=== PATIENT | male | born 1995 | race Caucasian/White ===

== ENCOUNTER 2020-04-06 13:31 | Inpatient (IN) | payer OTHER, MEDICAID, SELFPAY ==
[2020-04-06 13:33] VITALS: BP 134/90; PULSE 114; RESP 16; TEMP 36.7; O2SAT 95; BMI 21.1
--- NOTE | 2020-04-06 13:48 | ED.VIS.GEN ---
History of Present Illness Chief Complaint: Substance Abuse Narrative: Patient presenting for evaluation for detox from opiates. Patient reports that he has been on Suboxone treatment by a physician for around 2 years, but has had some issues with intermittent relapses with heroin. He was in a detox program around a year ago, and then states that he had a relapse last weekend of injection heroin and methamphetamine. Patient states that he has not used illicit drugs since the weekend, his last dose of Suboxone was this morning. He is presenting requesting detox from Suboxone and all opiates. Patient denies any other coingestants today. He denies any other somatic symptoms. Review of systems otherwise negative. Past Medical History - Allergies and Home Meds Allergies/Adverse Reactions: Allergies No Known Allergies Allergy (Verified 04/06/20 13:35) Prior records reviewed: Yes Past Medical History: - - Substance abuse history Surgical History: noncontributory Drugs: Heroin Review of Systems All systems negative except as indicated General: Denies: Chills, Fever, Sweats Eyes: Denies: Visual changes - bilaterally, Diplopia ENT: Denies: Rhinorrhea, Sore throat Cardiovascular: Denies: Chest pain, Palpitations Respiratory: Denies: Dyspnea, Cough, Dyspnea on exertion Gastrointestinal: Denies: Abdominal pain, Nausea, Vomiting, Diarrhea, Melena, Hematochezia Genitourinary: Denies: Dysuria, Hematuria, Frequency Musculoskeletal: Denies: Back pain, Extremity Pain Skin: Denies: Rash, Wounds Neurological: Denies: Headache, Weakness, Numbness Physical Exam Vital Signs/Narrative: Vital Signs Temp Pulse Resp BP Pulse Ox 04/06/20 13:33 98.1 F 114 H 16 134/90 H 95 Inital Vital Signs reviewed: Yes General: Well nourished, Well developed, No Acute Distress Head: Normocephalic, Atraumatic Eyes: Perrl, EOMI ENT: Moist mucous membranes, No rhinorrhea Neck: Supple, Nontender Cardiovascular: Regular rate, Regular rhythm, No murmurs Respiratory: No distress, CTA bilaterally, Chest nontender Abdomen: Soft, Nontender, Nondistended, Normal bowel sounds Back: Nontender, Normal Inspection Extremities: Nontender, No edema Skin: Normal color, No rash Neurological: Alert, Oriented x3, Cranial nerves II-XII grossly intact, Normal Strength, Normal Sensation Psychological: Normal affect, Normal Mood Diagnostic/Tx/Re-eval - Medical Decision Making Patient presented for detox from opiates. Patient seems to have good insight and judgment and is forward thinking and has not been through the detox program for. He has no outward signs of infection no or any underlying medical issues that would disqualify him from the program. Screening labs were obtained. Patient will be admitted to the hospitalist for treatment of his opiate dependence. ED Disposition - Plan for ED Patient: Disposition: [facility] Diagnosis: Opiate dependence
[2020-04-06 14:47] VITALS: BP 125/71; PULSE 57; RESP 16; TEMP 36.6; O2SAT 96
[2020-04-06 15:00] VITALS: BP 125/71; PULSE 57; RESP 14; RESP 16; TEMP 36.6; O2SAT 97
[2020-04-06 15:02] LABS: Absolute Neutrophil Count 3.7 X10^3/uL (2.0-7.7); Basophil# 0.02 X10^3/uL; Basophil% 0.3 % (0-1); Eosinophil# 0.01 X10^3/uL; Eosinophils% 0.2 % (0-5); Hematocrit 41.9 % (40-54); Hemoglobin 14.3 g/dL (13.0-16.5); Lymphocyte % 27.1 % (19-41); Mean Corp Hgb Conc 34.1 g/dL (32-36); Mean Corpuscular Hgb 29.4 pg (27.0-32.0); Mean Corpuscular Volume 86.2 fL (80-94); Mean Platelet Vol. 11.9 fl (6.2-12.0); Monocyte# 0.52 X10^3/uL; Monocyte% 8.8 % (0-10); NRBC Flagged by Analyzer 0 % (0-5); Neutrophil # 3.74 X10^3/uL (2.7-7.7); Neutrophil % 63.4 % (47-70); Platelet Count 265 K/mm3 (150-450); RBC Distribution Width CV 12.4 % (11.6-14.6); RBC Distribution Width SD 38.8 fl (35.1-43.9); Red Blood Count 4.86 M/mm3 (4.6-6.2); White Blood Count 5.9 K/mm3 (4.4-11.0)
[2020-04-06 15:08] LABS: Amphetamine Urine VISTA NEGATIVE (<1000 ng/mL); Barbiturate Urine VISTA NEGATIVE (< 200 ng/mL); Benzodiazepine Urine VISTA NEGATIVE (< 200 ng/mL); Cocaine Urine VISTA NEGATIVE (< 300 ng/mL); Ecstacy Urine VISTA NEGATIVE (< 500 ng/mL); Methadone Urine VISTA NEGATIVE (< 300 ng/mL); PCP Urine VISTA NEGATIVE (< 25 ng/mL); THC Urine VISTA POSITIVE (< 50 ng/mL); Vista UDS pH Range 5
[2020-04-06 15:19] LABS: ALB/GLOB Ratio 1.5 RATIO (0.9-2.4); AST(SGOT) 12 U/L (15-37); Alanine Aminotransfer ALT/SGPT 22 U/L (16-61); Albumin, Serum 4.4 g/dL (3.2-5.0); Alkaline Phosphatase 76 U/L (45-117); Anion Gap 3 (5-15); BUN 17 mg/dL (7-18); BUN/Creat Ratio 18.6 RATIO (10-20); Calcium,Total 9.3 mg/dL (8.5-10.1); Chloride 105 mmol/L (98-107); Creatinine, Serum 0.92 mg/dL (0.70-1.30); EST Glomerular Filtration Rate 107 mL/min (>60); Est Glom Filt Rate - Afr Amer 130 mL/min (>60); Estimated Creatinine Clearance 113.83 ml/min; Globulin 2.9 g/dL (2.2-4.2); Glucose 89 mg/dL (74-106); Potassium 4.3 mmol/L (3.5-5.1); Protein, Total 7.3 g/dL (6.4-8.2); Sodium Level 141 mmol/L (136-145)
[2020-04-06 15:22] LABS: Alcohol, Blood (Medical)-Serum < 3.0 mg/dL
--- NOTE | 2020-04-06 15:27 | CM.ED ---
Social Work Consult: Substance Abuse Informant: Dr. Fernández Met with patient in room. Introduced self and social media intern role. Patient agreeable to speak with this social media intern. Patient is seeking medical management of withdrawal symptoms, [facility] program. Patient states substance of choice is Heroine/Meth and last use was this past weekend. Patient states to have active substance abuse services through [facility]. Patient states to have support from patient mother and to currently live with mother. Patient states history of Depression, Anxiety and PTSD. When this social media intern inquired about possible triggers for patient in regards to trauma informed care patient states I am not sure why I am diagnosed with PTSD. Patient reports history of suicidal thoughts 5 years ago with no suicidal attempt history. Patient denies self-harm behavior. Patient aware of RAMP guidelines and contract. Patient voicing no questions. Support provided. Telephone call to [facility] treatment navigatorRoderick. This social media intern updated Roderick on admission status for patient. Mark So MSW, [place]
[2020-04-06 15:45] VITALS: BMI 20.3; BMI 20.4
--- NOTE | 2020-04-06 16:27 | PCM.HP.STD ---
Problem List (1) Acute opioid withdrawal Status: Acute (2) Opiate dependence Status: Acute Qualifiers: Substance use status: with unspecified opioid-induced disorder Qualified Code(s): F11.29 - Opioid dependence with unspecified opioid-induced disorder History of Present Illness Date of Admission: 04/06/20 Chief Complaint: Acute opioid withdrawal- 1 day The patient is a 24 year old M with PMHx of opioid withdrawal and nicotine dependence who comes in requesting for medical stabilization for opioid use. Patient is in a chronic Suboxone program but relapsed and started using heroin and amphetamine last week. He last took Suboxone this morning prior to coming to the ED. He has very mild symptoms of feeling hot and cold and feeling achy. He denied any diarrhea or abdominal pain. Denied any nausea or vomiting. Vitals in the ED showed temp of 98.1F, heart rate 114, blood pressure 134/90, respiratory 16, SPO2 is 95% on room air. BBC count is 5.9, hemoglobin is 14.3, platelet count 265, sodium 141, potassium 4.2, chloride 105, bicarbonate 33, BUN 17, creatinine 0.92, unremarkable. Urine tox positive for opiates and cannabinoids. Past Medical History Allergies No Known Allergies Allergy (Verified 04/06/20 13:35) Home Medications: Ambulatory Orders Medication Instructions Recorded Buprenorphine HCl/Naloxone HCl 8 ea SL BID 04/06/20 [Suboxone 8 mg-2 mg Sl Film] Surgical History: noncontributory Psychiatric History: No pertinent psych hx Lives: With Family Smoking Status: Current every day smoker Tobacco Use: Cigarettes Alcohol: None Drugs: Heroin, Marijuana - *Family History Maternal History Items: No pertinent history Paternal History Items: No pertinent history Review of Systems Constitutional: Reports: Chills, Malaise, Weakness. Denies: Anorexia, Fever, Weight Change, Fatigue Eyes: Denies: Blurred vision, Cataracts, Conjunctivae Inflammation, Pain, Redness, Vision Change HEENT: Denies: Difficulty Hearing, Difficulty Swallowing, Head Aches, Hearing Changes, Sinus Congestion, Sinus Drainage Cardiovascular: Denies: Chest Pain, Claudication, Orthopnea, Palpitations Respiratory: Denies: Cough, Hemoptysis, Shortness of breath at rest, Shortness of breath upon exertion, Sputum production Gastrointestinal: Denies: Abdominal Pain, Hematemesis, Hematochezia, Nausea, Vomiting Genitourinary: Denies: Dysuria, Frequency, Incontinence Musculoskeletal: Denies: Joint Pain, Joint Tenderness Skin: Denies: Rash, Wounds Neurological: Denies: Numbness, Tingling, Focal weakness Psychiatric: Denies: Anxiety, Depression, Homicidal Ideations, Suicidal Ideations Hematologic/ Lymphatic: Denies: Easy Bruising, Easy Bleeding VTE Information - Inpt Only VTE Present on Admission: No VTE Pharm Prophylaxis ordered?: Yes Patient Problems: Active and Suspected Problems Opiate dependence (Acute) Acute opioid withdrawal (Acute) - Physical Exam Vitals/I&O's: Vital Signs Temp Pulse Resp BP Pulse Ox 97.8 F 57 L 14 125/71 H 96 04/06/20 14:47 04/06/20 14:47 04/06/20 15:00 04/06/20 14:47 04/06/20 14:47 Oxygen Delivery Method Room Air Weight: 62.6 kg Body Mass Index (BMI) 20.3 General: Alert, Oriented x3, Cooperative, No apparent distress HEENT: Atraumatic, PERRLA, EOMI, Normocephalic Oral: Moist Mucosa Neck: Supple Lungs: Clear to auscultation, Normal air movement Cardiovascular: Regular rate, Regular Rhythm, Normal S1, Normal S2, No murmurs Abdomen: Bowel Sounds Present, Soft, Non Tender, Non-Distended, No Hepato-splenomegaly Extremities: No edema Skin: No rashes Musculoskeletal: No Tenderness to Palpation of Joints or Extremities Lymphatic: No Cervical, Supraclavicular, or Inguinal Adenopathy Neurological: Cranial nerves II-XII grossly intact, Neuro grossly intact Psych/Mental Status: Normal Affect, Appropriate Laboratory Results 04/06/20 14:41: Urine Opiates Screen POSITIVE H, Urine Methadone Screen NEGATIVE, Ur Barbiturates Screen NEGATIVE, Ur Phencyclidine Scrn NEGATIVE, Ur Amphetamines Screen NEGATIVE, U Methamphetamin-MDMA NEGATIVE, U Benzodiazepines Scrn NEGATIVE, Urine Cocaine Screen NEGATIVE, U Cannabinoids Screen POSITIVE H, Ur Drug Screen Comment 04/06/20 14:55: WBC 5.9, RBC 4.86, Hgb 14.3, Hct 41.9, MCV 86.2, MCH 29.4, MCHC 34.1, RDW Std Deviation 38.8, RDW Coeff of Andres 12.4, Plt Count 265, MPV 11.9, Immature Gran % (Auto) 0.200, Neut % (Auto) 63.4, Lymph % (Auto) 27.1, Plumas % (Auto) 8.8, Eos % (Auto) 0.2, Baso % (Auto) 0.3, Absolute Neuts (auto) 3.7, Absolute Lymphs (auto) 1.60, Nucleated RBC % 0 04/06/20 14:55: Sodium 141, Potassium 4.3, Chloride 105, Carbon Dioxide 33.0 H, Anion Gap 3 L, BUN 17, Creatinine 0.92, Estim Creat Clear Calc 113.83, Est GFR (MDRD) Af Amer 130, Est GFR (MDRD) Non-Af 107, BUN/Creatinine Ratio 18.6, Glucose 89, Calcium 9.3, Total Bilirubin 0.50, AST 12 L, ALT 22, Alkaline Phosphatase 76, Total Protein 7.3, Albumin 4.4, Globulin 2.9, Albumin/Globulin Ratio 1.5 04/06/20 14:55: Ethyl Alcohol < 3.0 Assessment/Plan All Active Problems Opiate dependence (Acute) Acute opioid withdrawal (Acute) 1. Acute opioid withdrawal, mild, patient with chronic opioid use Patient currently on chronic Suboxone; last use was this morning Request for medical stabilization Will continue to monitor on the withdrawal protocol Social work consult for discharge planning 2. Nicotine dependence, on replacement 3. DVT PPx-low risk, early ambulation recommended Inpatient E&M: 30722 Init Hosp L2
[2020-04-06 20:23] VITALS: BP 112/65; PULSE 54; RESP 16; TEMP 36.9; O2SAT 98
[2020-04-06] MEDS: 0.9% Saline Lock 10 ML Syringe IV (20:26)
[2020-04-07] MEDS: hydrOXYzine PAM 25 MG Capsule 50 MG PO ×3 (01:02→21:37)
[2020-04-07] MEDS: Buprenorphine HCl 2 MG TAB.SUBL SL ×3 (01:02→16:46)
[2020-04-07 02:36] VITALS: BP 114/65; PULSE 69; RESP 16; TEMP 36.7; O2SAT 100
[2020-04-07 08:27] VITALS: BP 121/66; PULSE 60; RESP 18; TEMP 36.8; O2SAT 100
--- NOTE | 2020-04-07 09:34 | CASEMGMT ---
Social Work Note Pt is RAMP pt. SW placed a call to Carli at [facility] and left message that pt will need to be seen. Yelena Blum KENO WRITER/RUNNER, MACHINE MOLDER SQUEEZE
--- NOTE | 2020-04-07 11:35 | PN_ITS ---
<Giovanni Hall - Last Filed: 04/07/20 11:35> Patient Problems: Active and Suspected Problems Opiate dependence (Acute) Acute opioid withdrawal (Acute) Reason for Visit: opiate withdrawal Subjective: Pt c/o sweats, nausea, shakes, restlessness this AM now improved since receiving subutex. Vitals/I&O's: Vital Signs Temp Pulse Resp BP Pulse Ox 98.2 F 60 18 121/66 H 100 04/07/20 08:27 04/07/20 08:27 04/07/20 08:27 04/07/20 08:27 04/07/20 08:27 Oxygen Delivery Method Room Air Weight: 138 lb 0.15 oz Body Mass Index (BMI) 20.3 Intake and Output for Last 24 Hours 04/05/20 04/06/20 04/07/20 23:59 23:59 23:59 Intake Total 500 / 700 440 / 440 Output Total 500 / 500 Balance 0 / 200 440 / 440 General: Alert, Oriented x3, Cooperative HEENT: Atraumatic, PERRLA, EOMI, Normocephalic Neck: Supple, No JVD, Negative Carotid Bruits Lungs: Clear to auscultation, Normal air movement Cardiovascular: Regular rate, No murmurs Abdomen: Bowel Sounds Present, Soft, Non Tender Extremities: No edema, Capillary Refill Less than 3 Seconds Skin: No rashes, No breakdown Musculoskeletal: No Tenderness to Palpation of Joints or Extremities Neurological: Cranial nerves II-XII grossly intact Psych/Mental Status: Normal Affect, Appropriate, Alert and oriented to time, place, person, mood and affect Laboratory Results 04/06/20 14:41: Urine Opiates Screen POSITIVE H, Urine Methadone Screen NEGATIVE, Ur Barbiturates Screen NEGATIVE, Ur Phencyclidine Scrn NEGATIVE, Ur Amphetamines Screen NEGATIVE, U Methamphetamin-MDMA NEGATIVE, U Benzodiazepines Scrn NEGATIVE, Urine Cocaine Screen NEGATIVE, U Cannabinoids Screen POSITIVE H, Ur Drug Screen Comment 04/06/20 14:55: WBC 5.9, RBC 4.86, Hgb 14.3, Hct 41.9, MCV 86.2, MCH 29.4, MCHC 34.1, RDW Std Deviation 38.8, RDW Coeff of Andres 12.4, Plt Count 265, MPV 11.9, Immature Gran % (Auto) 0.200, Neut % (Auto) 63.4, Lymph % (Auto) 27.1, Parker % (Auto) 8.8, Eos % (Auto) 0.2, Baso % (Auto) 0.3, Absolute Neuts (auto) 3.7, Absolute Lymphs (auto) 1.60, Nucleated RBC % 0 04/06/20 14:55: Sodium 141, Potassium 4.3, Chloride 105, Carbon Dioxide 33.0 H, Anion Gap 3 L, BUN 17, Creatinine 0.92, Estim Creat Clear Calc 113.83, Est GFR (MDRD) Af Amer 130, Est GFR (MDRD) Non-Af 107, BUN/Creatinine Ratio 18.6, Glucose 89, Calcium 9.3, Total Bilirubin 0.50, AST 12 L, ALT 22, Alkaline Phosphatase 76, Total Protein 7.3, Albumin 4.4, Globulin 2.9, Albumin/Globulin Ratio 1.5 04/06/20 14:55: Ethyl Alcohol < 3.0 Current Medications Acetaminophen (Tylenol) 500 mg PO Q4H PRN PRN PRN Reason: Temp > 100.4 F Bisacodyl (Dulcolax) 10 mg RECTAL DAILY PRN PRN Reason: Constipation Buprenorphine HCl (Buprenorphine Hcl) 4 mg SL Q8H SAIGE; Taper Stop: 04/10/20 00:59 Last Admin: 04/07/20 08:25 Dose: 4 mg Documented by: Clonidine (Catapres) 0.1 mg PO Q8H PRN PRN PRN Reason: RESTLESSNESS Dicyclomine HCl (Bentyl) 20 mg PO Q6H PRN PRN PRN Reason: Abdominal Discomfort Gabapentin (Neurontin) 300 mg PO Q8H PRN PRN PRN Reason: moderate to severe anxiety Hydroxyzine Pamoate (Vistaril Pamoate Capsule) 50 mg PO Q6H PRN PRN PRN Reason: mild anxiety Last Admin: 04/07/20 01:02 Dose: 50 mg Documented by: Ibuprofen (Motrin) 600 mg PO Q8H PRN PRN PRN Reason: Pain Score 1-10/10 Loperamide HCl (Imodium) 2 mg PO Q4H PRN PRN PRN Reason: LOOSE STOOLS Methocarbamol (Methocarbamol) 1,500 mg PO Q6H PRN PRN PRN Reason: MUSCLE SPASM Nicotine (Nicoderm Cq (Pbkc)) 21 mg TRANSDERM. DAILY SAIGE Last Admin: 04/07/20 08:25 Dose: 21 mg Documented by: Nicotine Polacrilex (Rugby Nicotine (Bkc)) 2 mg PO Q2H PRN PRN PRN Reason: Nicotine Craving Ondansetron HCl (Zofran) 8 mg PO Q8H PRN PRN PRN Reason: NAUSEA Senna (Senokot) 2 tablet PO QHS PRN PRN Reason: Constipation Sodium Chloride () 10 - 40 ml IV UD PRN PRN Reason: SALINE FLUSH Last Admin: 04/06/20 20:26 Dose: 10 ml Documented by: Trazodone HCl (Desyrel) 100 mg PO QHS PRN PRN PRN Reason: INSOMNIA STROKE Vital Signs/Narrative: Vital Signs Temp Pulse Resp BP Pulse Ox 04/07/20 08:27 98.2 F 60 18 121/66 H 100 Medical Necessity - Tobacco Use Smoking Status: Current every day smoker Tobacco Use: Cigarettes Assessment/Plan All Active Problems Opiate dependence (Acute) Acute opioid withdrawal (Acute) 1. Opiate abuse with withdrawal - increased sx this AM however improved after latest subetex dose. Continue taper. Injections sites at [facility] AC's appear uninfec lina. 2. Nicotine abuse - patch DVT ppx: early ambulation [facility] plannin program This patient was seen by Giovanni Hall PA-C under the supervision of Doctor Lolita. <Eulogio Mchugh F - Last Filed: 04/07/20 15:45> Vitals/I&O's: Vital Signs Temp Pulse Resp BP Pulse Ox 98.2 F 66 16 116/74 100 04/07/20 14:54 04/07/20 14:54 04/07/20 14:54 04/07/20 14:54 04/07/20 14:54 Oxygen Delivery Method Room Air Weight: 138 lb 0.15 oz Body Mass Index (BMI) 20.3 Intake and Output for Last 24 Hours 04/05/20 04/06/20 04/07/20 23:59 23:59 23:59 Intake Total 500 / 700 940 / 940 Output Total 500 / 500 Balance 0 / 200 940 / 940 Current Medications Acetaminophen (Tylenol) 500 mg PO Q4H PRN PRN PRN Reason: Temp > 100.4 F Bisacodyl (Dulcolax) 10 mg RECTAL DAILY PRN PRN Reason: Constipation Buprenorphine HCl (Buprenorphine Hcl) 4 mg SL Q8H SAIGE; Taper Stop: 04/10/20 00:59 Last Admin: 04/07/20 08:25 Dose: 4 mg Documented by: Clonidine (Catapres) 0.1 mg PO Q8H PRN PRN PRN Reason: RESTLESSNESS Last Admin: 04/07/20 15:11 Dose: 0.1 mg Documented by: Dicyclomine HCl (Bentyl) 20 mg PO Q6H PRN PRN PRN Reason: Abdominal Discomfort Last Admin: 04/07/20 15:12 Dose: 20 mg Documented by: Gabapentin (Neurontin) 300 mg PO Q8H PRN PRN PRN Reason: moderate to severe anxiety Hydroxyzine Pamoate (Vistaril Pamoate Capsule) 50 mg PO Q6H PRN PRN PRN Reason: mild anxiety Last Admin: 04/07/20 15:11 Dose: 50 mg Documented by: Ibuprofen (Motrin) 600 mg PO Q8H PRN PRN PRN Reason: Pain Score 1-10/10 Loperamide HCl (Imodium) 2 mg PO Q4H PRN PRN PRN Reason: LOOSE STOOLS Methocarbamol (Methocarbamol) 1,500 mg PO Q6H PRN PRN PRN Reason: MUSCLE SPASM Last Admin: 04/07/20 15:11 Dose: 1,500 mg Documented by: Nicotine (Nicoderm Cq (Pbkc)) 21 mg TRANSDERM. DAILY SAIGE Last Admin: 04/07/20 08:25 Dose: 21 mg Documented by: Nicotine Polacrilex (Rugby Nicotine (Bkc)) 2 mg PO Q2H PRN PRN PRN Reason: Nicotine Craving Ondansetron HCl (Zofran) 8 mg PO Q8H PRN PRN PRN Reason: NAUSEA Senna (Senokot) 2 tablet PO QHS PRN PRN Reason: Constipation Sodium Chloride () 10 - 40 ml IV UD PRN PRN Reason: SALINE FLUSH Last Admin: 04/06/20 20:26 Dose: 10 ml Documented by: Trazodone HCl (Desyrel) 100 mg PO QHS PRN PRN PRN Reason: INSOMNIA STROKE Vital Signs/Narrative: Vital Signs Temp Pulse Resp BP Pulse Ox 04/07/20 14:54 98.2 F 66 16 116/74 100 Addendum: Dr. Mchugh I personally examined the patient and reviewed the chart. I agree with the above. 4-year-old male here for acute opiate withdrawal. We will continue with opiate withdrawal port protocol and plan for transfer to outpatient rehab with [facility]. His Suboxone taper is likely going to be finished on Friday therefore if he does get an appointment by Friday we will plan to keep him here through the weekend she can be discharged straight to [facility] helpfully prevent any relapse. Inpatient E&M: 54622 Subs Hosp L2
--- NOTE | 2020-04-07 12:02 | ADDICTION ---
This repairer typewriter met with patient, in his room, to conduct ASAM and MSE assessments and discharge planning. Patient was alert and oriented x4 and presented with euthymic mood/affect. He verbalized a desire to engage in treatment upon discharge from [facility]. This repairer typewriter scheduled patient for assessment and residential referral on 04/11/2020. He reports that he is amiable to this. He appears appropriate for the [facility] at this time.
[2020-04-07 14:54] VITALS: BP 116/74; PULSE 66; RESP 16; TEMP 36.8; O2SAT 100
[2020-04-07] MEDS: cloNIDine HCl 0.1 MG Tablet PO (15:11)
[2020-04-07] MEDS: Methocarbamol 750 MG Tablet 1500 MG PO ×2 (15:11→21:37)
[2020-04-07] MEDS: Dicyclomine 10 MG Capsule 20 MG PO ×2 (15:12→21:37)
--- NOTE | 2020-04-07 16:10 | CASEMGMT ---
Social Work Note SW received message from Carli at [facility] stating pt needs RASHAWN signed so a referral for residential can be made. SW in to speak with pt. SW introduced self and role at [facility]. SW explained that [facility] needs a RASHAWN signed, pt signed RASHAWN. SW faxed RASHAWN to Carli at [facility] and placed original on pt's chart. Yelena Blum TRAVEL REGISTERED NURSE ONCOLOGY, MOVING CONSULTANT
[2020-04-07 20:05] VITALS: BP 111/58; PULSE 60; RESP 16; TEMP 36.8; O2SAT 100
[2020-04-07] MEDS: Gabapentin 300 MG Capsule PO (20:16)
[2020-04-08] MEDS: Buprenorphine HCl 2 MG TAB.SUBL SL ×3 (01:53→16:57)
[2020-04-08 01:54] VITALS: BP 117/65; PULSE 50; RESP 16; TEMP 36.3; O2SAT 98
[2020-04-08] MEDS: Dicyclomine 10 MG Capsule 20 MG PO ×2 (09:07→19:53)
[2020-04-08] MEDS: Gabapentin 300 MG Capsule PO (09:07)
[2020-04-08] MEDS: Methocarbamol 750 MG Tablet 1500 MG PO ×2 (09:07→19:53)
[2020-04-08 10:00] VITALS: BP 111/69; PULSE 68; RESP 16; TEMP 36.8; O2SAT 98
--- NOTE | 2020-04-08 12:41 | PN_ITS ---
<Giovanni Hall - Last Filed: 04/08/20 12:41> Patient Problems: Active and Suspected Problems Opiate dependence (Acute) Acute opioid withdrawal (Acute) Reason for Visit: opiate withdrawal Subjective: Pt c/o all over body aches. otherwise doing well. Vitals/I&O's: Vital Signs Temp Pulse Resp BP Pulse Ox 97.4 F L 50 L 16 117/65 98 04/08/20 01:54 04/08/20 01:54 04/08/20 01:54 04/08/20 01:54 04/08/20 01:54 Oxygen Delivery Method Room Air Weight: 138 lb 0.15 oz Body Mass Index (BMI) 20.3 Intake and Output for Last 24 Hours 04/06/20 04/07/20 04/08/20 23:59 23:59 23:59 Intake Total 500 / 700 1390 / 1390 Output Total 500 / 500 Balance 0 / 200 1390 / 1390 General: Alert, Oriented x3, Cooperative HEENT: Atraumatic, PERRLA, EOMI, Normocephalic Neck: Supple, No JVD, Negative Carotid Bruits Lungs: Clear to auscultation, Normal air movement Cardiovascular: Regular rate, No murmurs Abdomen: Bowel Sounds Present, Soft, Non Tender Extremities: No edema, Capillary Refill Less than 3 Seconds Skin: No rashes, No breakdown Musculoskeletal: No Tenderness to Palpation of Joints or Extremities Neurological: Cranial nerves II-XII grossly intact Psych/Mental Status: Normal Affect, Appropriate, Alert and oriented to time, place, person, mood and affect Current Medications Acetaminophen (Tylenol) 500 mg PO Q4H PRN PRN PRN Reason: Temp > 100.4 F Bisacodyl (Dulcolax) 10 mg RECTAL DAILY PRN PRN Reason: Constipation Buprenorphine HCl (Buprenorphine Hcl) 2 mg SL Q8H SAIGE; Taper Stop: 04/10/20 00:59 Last Admin: 04/08/20 09:00 Dose: 2 mg Documented by: Clonidine (Catapres) 0.1 mg PO Q8H PRN PRN PRN Reason: RESTLESSNESS Last Admin: 04/07/20 15:11 Dose: 0.1 mg Documented by: Dicyclomine HCl (Bentyl) 20 mg PO Q6H PRN PRN PRN Reason: Abdominal Discomfort Last Admin: 04/08/20 09:07 Dose: 20 mg Documented by: Gabapentin (Neurontin) 300 mg PO Q8H PRN PRN PRN Reason: moderate to severe anxiety Last Admin: 04/08/20 09:07 Dose: 300 mg Documented by: Hydroxyzine Pamoate (Vistaril Pamoate Capsule) 50 mg PO Q6H PRN PRN PRN Reason: mild anxiety Last Admin: 04/07/20 21:37 Dose: 50 mg Documented by: Ibuprofen (Motrin) 600 mg PO Q8H PRN PRN PRN Reason: Pain Score 1-10/10 Loperamide HCl (Imodium) 2 mg PO Q4H PRN PRN PRN Reason: LOOSE STOOLS Methocarbamol (Methocarbamol) 1,500 mg PO Q6H PRN PRN PRN Reason: MUSCLE SPASM Last Admin: 04/08/20 09:07 Dose: 1,500 mg Documented by: Nicotine (Nicoderm Cq (Pbkc)) 21 mg TRANSDERM. DAILY SAIGE Last Admin: 04/08/20 09:01 Dose: 21 mg Documented by: Nicotine Polacrilex (Rugby Nicotine (Bkc)) 2 mg PO Q2H PRN PRN PRN Reason: Nicotine Craving Ondansetron HCl (Zofran) 8 mg PO Q8H PRN PRN PRN Reason: NAUSEA Senna (Senokot) 2 tablet PO QHS PRN PRN Reason: Constipation Sodium Chloride () 10 - 40 ml IV UD PRN PRN Reason: SALINE FLUSH Last Admin: 04/06/20 20:26 Dose: 10 ml Documented by: Trazodone HCl (Desyrel) 100 mg PO QHS PRN PRN PRN Reason: INSOMNIA Medical Necessity - Tobacco Use Smoking Status: Current every day smoker Tobacco Use: Cigarettes Assessment/Plan All Active Problems Opiate dependence (Acute) Acute opioid withdrawal (Acute) 1. Opiate abuse with withdrawal - doing well, continue subutex taper. 2. Nicotine abuse - patch DVT ppx: early ambulation DC plannin program. home tomorrow. This patient was seen by Giovanni Hall PA-C under the supervision of Doctor Lolita. <Eulogio Mchugh - Last Filed: 04/08/20 15:34> Vitals/I&O's: Vital Signs Temp Pulse Resp BP Pulse Ox 97.4 F L 50 L 16 117/65 98 04/08/20 01:54 04/08/20 01:54 04/08/20 01:54 04/08/20 01:54 04/08/20 01:54 Oxygen Delivery Method Room Air Weight: 138 lb 0.15 oz Body Mass Index (BMI) 20.3 Intake and Output for Last 24 Hours 04/06/20 04/07/20 04/08/20 23:59 23:59 23:59 Intake Total 500 / 700 1390 / 1390 850 / 850 Output Total 500 / 500 Balance 0 / 200 1390 / 1390 850 / 850 Current Medications Acetaminophen (Tylenol) 500 mg PO Q4H PRN PRN PRN Reason: Temp > 100.4 F Bisacodyl (Dulcolax) 10 mg RECTAL DAILY PRN PRN Reason: Constipation Buprenorphine HCl (Buprenorphine Hcl) 2 mg SL Q8H SAIGE; Taper Stop: 04/10/20 00:59 Last Admin: 04/08/20 09:00 Dose: 2 mg Documented by: Clonidine (Catapres) 0.1 mg PO Q8H PRN PRN PRN Reason: RESTLESSNESS Last Admin: 04/07/20 15:11 Dose: 0.1 mg Documented by: Dicyclomine HCl (Bentyl) 20 mg PO Q6H PRN PRN PRN Reason: Abdominal Discomfort Last Admin: 04/08/20 09:07 Dose: 20 mg Documented by: Gabapentin (Neurontin) 300 mg PO Q8H PRN PRN PRN Reason: moderate to severe anxiety Last Admin: 04/08/20 09:07 Dose: 300 mg Documented by: Hydroxyzine Pamoate (Vistaril Pamoate Capsule) 50 mg PO Q6H PRN PRN PRN Reason: mild anxiety Last Admin: 04/08/20 12:50 Dose: 50 mg Documented by: Ibuprofen (Motrin) 600 mg PO Q8H PRN PRN PRN Reason: Pain Score 1-10/10 Loperamide HCl (Imodium) 2 mg PO Q4H PRN PRN PRN Reason: LOOSE STOOLS Methocarbamol (Methocarbamol) 1,500 mg PO Q6H PRN PRN PRN Reason: MUSCLE SPASM Last Admin: 08/08/20 09:07 Dose: 1,500 mg Documented by: Nicotine (Nicoderm Cq (Pbkc)) 21 mg TRANSDERM. DAILY SAIGE Last Admin: 04/08/20 09:01 Dose: 21 mg Documented by: Nicotine Polacrilex (Rugby Nicotine (Bkc)) 2 mg PO Q2H PRN PRN PRN Reason: Nicotine Craving Ondansetron HCl (Zofran) 8 mg PO Q8H PRN PRN PRN Reason: NAUSEA Senna (Senokot) 2 tablet PO QHS PRN PRN Reason: Constipation Sodium Chloride () 10 - 40 ml IV UD PRN PRN Reason: SALINE FLUSH Last Admin: 04/06/20 20:26 Dose: 10 ml Documented by: Trazodone HCl (Desyrel) 100 mg PO QHS PRN PRN PRN Reason: INSOMNIA Addendum: Dr. Mchugh I personally examined the patient and reviewed the chart. I agree with the above. 24-year-old male here for acute opiate withdrawal. We will continue with opiate withdrawal port protocol and plan for transfer to outpatient rehab with [facility]. His Suboxone taper is likely going to be finished on Friday therefore if he does get an appointment by Friday we will plan to keep him here through the weekend she can be discharged straight to [facility] helpfully prevent any relapse. 04/08/2020: Doing well overnight, having total body aches. Continue with his opiate withdrawal protocol. Plan will be for outpatient rehab on Friday hopefully Inpatient E&M: [id number] [facility]
[2020-04-08] MEDS: hydrOXYzine PAM 25 MG Capsule 50 MG PO ×2 (12:50→21:53)
[2020-04-08 19:26] VITALS: BP 116/74; PULSE 60; RESP 16; TEMP 37.2; O2SAT 98
[2020-04-08 19:50] VITALS: BP 121/67; PULSE 63; RESP 16; TEMP 36.4; O2SAT 98
[2020-04-08] MEDS: Ibuprofen 600 MG Tablet PO (19:53)
[2020-04-08] MEDS: Ondansetron 8 MG Tablet PO (19:53)
[2020-04-08] MEDS: traZODone 100 MG Tablet PO (21:53)
[2020-04-09 01:48] VITALS: BP 103/56; PULSE 58; RESP 14; TEMP 36.5; O2SAT 99
[2020-04-09] MEDS: Buprenorphine HCl 2 MG TAB.SUBL SL ×2 (01:50→13:14)
[2020-04-09 09:00] VITALS: BP 128/72; PULSE 70; RESP 16; TEMP 37.2; O2SAT 98
--- NOTE | 2020-04-09 11:08 | DCINST_ITS ---
- Discharge Diagnoses Current Active Problems: Current Active and Chronic Problems Opiate dependence (Acute) Acute opioid withdrawal (Acute) You will use the following diet at home:: No restrictions Your food should be the consistency of: Regular Your liquids should be the consistency of: Regular/Thin Discharge Activity: Return to Normal Activity Allergies/Adverse Reactions: Allergies No Known Allergies Allergy (Verified 04/06/20 13:35) Medications to take at Discharge Buprenorphine HCl/Naloxone HCl [Suboxone 8 mg-2 mg Sl Film] 8 ea SL BID 04/06/20 Primary Care Physician: Care Physician,No Primary [Primary Care Provider] - Please follow up with your Primary Care Physician in: 1-2 weeks Test Results: Test results from this visit will be discussed in further detail at your follow- up appointment, if applicable. Please Follow Up With: [facility] program When: As soon as possible Proposed Discharge Date: 04/09/20
--- NOTE | 2020-04-09 11:08 | PCM.DC.SUM ---
<Giovanni Hall - Last Filed: 04/09/20 11:08> Discharge Date and Diagnosis - Problem List Patient Problems: Active and Suspected Problems Opiate dependence (Acute) Acute opioid withdrawal (Acute) Date of Admission: 04/06/20 Date of Discharge: 04/09/20 - Primary Discharge Diagnosis Acute Problems: Active Problems Opiate dependence (Acute) Acute opioid withdrawal (Acute) Nicotine abuse THC abuse Hospital Course and Treatment Operations: None Procedures: None Summary of Care Provided: Hospital Course: The patient is a 24 year old M with past medical history of IV opiate abuse who presented to the emergency room with request for assistance detoxing. He had been on a Suboxone program however he started using heroin and amphetamines a week prior to presentation. His withdrawal symptoms were mild including hot and cold flashes, achiness all over. He had been injecting into the bilateral ACs which appear noninfected at this time. He was admitted to the detox program and started on the Subutex taper. He underwent an unremarkable course and completed the taper. He was discharged home in stable condition and will follow up with the [facility] program as an outpatient. Follow up with PCP in 1-2 weeks as well. This patient was seen by Giovanni Hall PA-C under the supervision of Dr. Mchugh. [] Patient Problems: Active and Suspected Problems Opiate dependence (Acute) Acute opioid withdrawal (Acute) - Physical Exam Vitals/I&O's: Vital Signs Temp Pulse Resp BP Pulse Ox 97.7 F L 58 L 14 103/56 L 99 04/09/20 01:48 04/09/20 01:48 04/09/20 01:48 04/09/20 01:48 04/09/20 01:48 Oxygen Delivery Method Room Air Weight: 138 lb 0.15 oz Body Mass Index (BMI) 20.3 Intake and Output for Last 24 Hours 04/07/20 04/08/20 04/09/20 23:59 23:59 23:59 Intake Total 1390 / 1390 1650 / 1650 350 / 350 Balance 1390 / 1390 1650 / 1650 350 / 350 General: Alert, Oriented x3, Cooperative HEENT: Atraumatic, PERRLA, EOMI, Normocephalic Neck: Supple, No JVD, Negative Carotid Bruits Lungs: Clear to auscultation, Normal air movement Cardiovascular: Regular rate, No murmurs Abdomen: Bowel Sounds Present, Soft, Non Tender Extremities: No edema, Capillary Refill Less than 3 Seconds Skin: No rashes, No breakdown Musculoskeletal: No Tenderness to Palpation of Joints or Extremities Neurological: Cranial nerves II-XII grossly intact Psych/Mental Status: Normal Affect, Appropriate Current Medications Acetaminophen (Tylenol) 500 mg PO Q4H PRN PRN PRN Reason: Temp > 100.4 F Bisacodyl (Dulcolax) 10 mg RECTAL DAILY PRN PRN Reason: Constipation Buprenorphine HCl (Buprenorphine Hcl) 2 mg SL Q12H SAIGE; Taper Stop: 04/10/20 00:59 Last Admin: 04/09/20 01:50 Dose: 2 mg Documented by: Clonidine (Catapres) 0.1 mg PO Q8H PRN PRN PRN Reason: RESTLESSNESS Last Admin: 04/07/20 15:11 Dose: 0.1 mg Documented by: Dicyclomine HCl (Bentyl) 20 mg PO Q6H PRN PRN PRN Reason: Abdominal Discomfort Last Admin: 04/08/20 19:53 Dose: 20 mg Documented by: Gabapentin (Neurontin) 300 mg PO Q8H PRN PRN PRN Reason: moderate to severe anxiety Last Admin: 04/08/20 09:07 Dose: 300 mg Documented by: Hydroxyzine Pamoate (Vistaril Pamoate Capsule) 50 mg PO Q6H PRN PRN PRN Reason: mild anxiety Last Admin: 04/08/20 21:53 Dose: 50 mg Documented by: Ibuprofen (Motrin) 600 mg PO Q8H PRN PRN PRN Reason: Pain Score 1-10/10 Last Admin: 04/08/20 19:53 Dose: 600 mg Documented by: Loperamide HCl (Imodium) 2 mg PO Q4H PRN PRN PRN Reason: LOOSE STOOLS Methocarbamol (Methocarbamol) 1,500 mg PO Q6H PRN PRN PRN Reason: MUSCLE SPASM Last Admin: 04/08/20 19:53 Dose: 1,500 mg Documented by: Nicotine (Nicoderm Cq (Pbkc)) 21 mg TRANSDERM. DAILY SAIGE Last Admin: 04/09/20 09:45 Dose: 21 mg Documented by: Nicotine Polacrilex (Rugby Nicotine (Bkc)) 2 mg PO Q2H PRN PRN PRN Reason: Nicotine Craving Ondansetron HCl (Zofran) 8 mg PO Q8H PRN PRN PRN Reason: NAUSEA Last Admin: 04/08/20 19:53 Dose: 8 mg Documented by: Senna (Senokot) 2 tablet PO QHS PRN PRN Reason: Constipation Sodium Chloride () 10 - 40 ml IV UD PRN PRN Reason: SALINE FLUSH Last Admin: 04/06/20 20:26 Dose: 10 ml Documented by: Trazodone HCl (Desyrel) 100 mg PO QHS PRN PRN PRN Reason: INSOMNIA Last Admin: 04/08/20 21:53 Dose: 100 mg Documented by: Discharge Diet: No Restrictions Discharge Activity: Return to Normal Activity Home Medications: Medications to take at Discharge Buprenorphine HCl/Naloxone HCl [Suboxone 8 mg-2 mg Sl Film] 8 ea SL BID 04/06/20 Primary Care Physician: Care Physician,No Primary [Primary Care Provider] - Please follow up with your Primary Care Physician in: 1-2 weeks Please Follow Up With: [facility] program When: As soon as possible Disposition: Home Minutes spent on discharge:: 35 Medical Necessity - Tobacco Use Smoking Status: Current every day smoker Tobacco Use: Cigarettes Meaningful Use Info Meaningful Use Diagnoses (Choose all that apply): None applicable <Eulogio Mchugh F - Last Filed: 04/09/20 12:29> Discharge Date and Diagnosis - Primary Discharge Diagnosis Acute Problems: Active Problems Opiate dependence (Acute) Acute opioid withdrawal (Acute) Hospital Course and Treatment Summary of Care Provided: The patient is a 24 year old M [] - Physical Exam Vitals/I&O's: Vital Signs Temp Pulse Resp BP Pulse Ox 98.9 F 70 16 128/72 H 98 04/09/20 09:00 04/09/20 09:00 04/09/20 09:00 04/09/20 09:00 04/09/20 09:00 Oxygen Delivery Method Room Air Weight: 138 lb 0.15 oz Body Mass Index (BMI) 20.3 Intake and Output for Last 24 Hours 04/07/20 04/08/20 04/09/20 23:59 23:59 23:59 Intake Total 1390 / 1390 1650 / 1650 350 / 350 Balance 1390 / 1390 1650 / 1650 350 / 350 Current Medications Acetaminophen (Tylenol) 500 mg PO Q4H PRN PRN PRN Reason: Temp > 100.4 F Bisacodyl (Dulcolax) 10 mg RECTAL DAILY PRN PRN Reason: Constipation Buprenorphine HCl (Buprenorphine Hcl) 2 mg SL Q12H SAIGE; Taper Stop: 04/10/20 00:59 Last Admin: 04/09/20 01:50 Dose: 2 mg Documented by: Clonidine (Catapres) 0.1 mg PO Q8H PRN PRN PRN Reason: RESTLESSNESS Last Admin: 04/07/20 15:11 Dose: 0.1 mg Documented by: Dicyclomine HCl (Bentyl) 20 mg PO Q6H PRN PRN PRN Reason: Abdominal Discomfort Last Admin: 04/08/20 19:53 Dose: 20 mg Documented by: Gabapentin (Neurontin) 300 mg PO Q8H PRN PRN PRN Reason: moderate to severe anxiety Last Admin: 04/08/20 09:07 Dose: 300 mg Documented by: Hydroxyzine Pamoate (Vistaril Pamoate Capsule) 50 mg PO Q6H PRN PRN PRN Reason: mild anxiety Last Admin: 04/08/20 21:53 Dose: 50 mg Documented by: Ibuprofen (Motrin) 600 mg PO Q8H PRN PRN PRN Reason: Pain Score 1-10/10 Last Admin: 04/08/20 19:53 Dose: 600 mg Documented by: Loperamide HCl (Imodium) 2 mg PO Q4H PRN PRN PRN Reason: LOOSE STOOLS Methocarbamol (Methocarbamol) 1,500 mg PO Q6H PRN PRN PRN Reason: MUSCLE SPASM Last Admin: 04/08/20 19:53 Dose: 1,500 mg Documented by: Nicotine (Nicoderm Cq (Pbkc)) 21 mg TRANSDERM. DAILY SAIGE Last Admin: 04/09/20 09:45 Dose: 21 mg Documented by: Nicotine Polacrilex (Rugby Nicotine (Bkc)) 2 mg PO Q2H PRN PRN PRN Reason: Nicotine Craving Ondansetron HCl (Zofran) 8 mg PO Q8H PRN PRN PRN Reason: NAUSEA Last Admin: 04/08/20 19:53 Dose: 8 mg Documented by: Senna (Senokot) 2 tablet PO QHS PRN PRN Reason: Constipation Sodium Chloride () 10 - 40 ml IV UD PRN PRN Reason: SALINE FLUSH Last Admin: 04/06/20 20:26 Dose: 10 ml Documented by: Trazodone HCl (Desyrel) 100 mg PO QHS PRN PRN PRN Reason: INSOMNIA Last Admin: 04/08/20 21:53 Dose: 100 mg Documented by: Addendum: Dr. Mchugh I personally examined the patient and reviewed the chart. I agree with the above. 24-year-old male here for acute opiate withdrawal. We will continue with opiate withdrawal port protocol and plan for transfer to outpatient rehab with [facility]. His Suboxone taper is likely going to be finished on Friday therefore if he does get an appointment by Friday we will plan to keep him here through the weekend she can be discharged straight to [facility] helpfully prevent any relapse. 04/08/2020: Doing well overnight, having total body aches. Continue with his opiate withdrawal protocol. Plan will be for outpatient rehab on Friday hopefully 04/09/2020: He did well overnight. I discussed with him that his appointment with [facility] is until Friday and that would be in his best interest to stay until Friday however he would prefer to go home today. He says that he has supports in place to prevent him from using until he gets to [facility] on Friday. I discussed the risk and benefits of discharge and he expressed understanding of those risks. Inpatient E&M: [id number] [facility]
[2020-04-09 13:20] VITALS: BP 131/75; PULSE 84; RESP 16; TEMP 37; O2SAT 98
== END 2020-04-09 13:26 | disposition home or self-care (01) | DRG 773 ==
LOC: ED 14:14 → MS3 04-07 07:15
PROVIDERS: Admitting Provider Internal Medicine; Emergency Provider Emergency Medicine; Visit Provider Family Medicine
DX: F11.23 Opioid dependence with withdrawal (principal); F12.10 Cannabis abuse, uncomplicated; F17.210 Nicotine dependence, cigarettes, uncomplicated; F15.90 Other stimulant use, unspecified, uncomplicated
CPT/HCPCS: 80053; 80307; 80320; 85025; 99283; 99406; H0012; A4216; G0480